=== PATIENT | female | born 1995 ===

== ENCOUNTER 2025-08-08 02:31 | Inpatient (IN) | payer OTHER ==
[2025-08-08] MEDS ORDERED: HYDROmorphone 2 MG/ML VIAL SLOW IVP PRN (03:16)
[2025-08-08] MEDS ORDERED: Acetaminophen 325 MG TAB PO PRN (03:19)
[2025-08-08] MEDS ORDERED: diphenhydrAMINE 25 MG CAP PO PRN (03:20)
[2025-08-08] MEDS ORDERED: Bisacodyl 10 MG SUPP PR PRN (03:24)
[2025-08-08] MEDS ORDERED: Atropine Sulfate 1% Ophth Soln 5 ml Bottle SL PRN (03:24)
[2025-08-08] MEDS ORDERED: Scopolamine 1 mg/72 hour Patch TOP SCH (03:30)
[2025-08-08] MEDS: HYDROmorphone 2 MG/ML VIAL SLOW IVP SCH (03:35)
[2025-08-08 03:58] VITALS: BP 80/56; TEMP 97.4
[2025-08-08 04:08] VITALS: BMI 17.4
[2025-08-08] MEDS ORDERED: Glycopyrrolate 0.4 MG/ 2 ML VIAL SLOW IVP SCH (06:00)
== END 2025-08-08 05:40 | disposition expired | DRG 951 ==
LOC: MSONC 02:40
PROVIDERS: ADMIT Family Medicine; ATTEND Family Medicine
DX: Z51.5 Encounter for palliative care (principal); C80.1 Malignant (primary) neoplasm, unspecified; Z66 Do not resuscitate
CPT/HCPCS: J1171; J2060